=== PATIENT | male | born 1975 | race Caucasian/White ===

== ENCOUNTER 2020-08-20 10:08 | Emergency (ER) | payer MEDICAID, OTHER ==
[~2020-08-20] VITALS: Ht 157.5 cm; Wt 77.1 kg
--- NOTE | 2020-08-20 10:20 | NUR ---
PT IS IN ROOM #2B. DR JEFFERSON EVALUATED THE PT.
[2020-08-20] MEDS ORDERED: SULFAMETH/TRIMETH 800/160 MG TABLET ONE (10:48)
[2020-08-20] MEDS: SULFAMETH/TRIMETH 800/160 MG TABLET PO ONE (11:01)
--- NOTE | 2020-08-20 11:02 | NUR ---
PT WAS D/C'd TO HOME. D/C INSTRUCTIONS GIVEN TO THE PT BY DR JEFFERSON.
[2020-08-20 11:03] VITALS: BP 141/77
== END 2020-08-20 11:07 | disposition home or self-care (01) ==
LOC: ER 10:08
DX: L02.412 Cutaneous abscess of left axilla (principal)
CPT/HCPCS: A4663

== ENCOUNTER 2022-03-05 19:10 | Emergency (ER) | payer OTHER ==
[~2022-03-05] VITALS: Ht 188 cm; Wt 79.4 kg
--- NOTE | 2022-03-05 19:18 | NUR ---
Dr Clemente at bedside, MSE in progress.
[2022-03-05] MEDS ORDERED: LIDOCAINE 2%-EPI 1:100,000 20 ML VIAL ONE (19:28)
[2022-03-05] MEDS ORDERED: LIDOCAINE 2%-EPI 1:100,000 20 ML VIAL IJ ONE (19:30)
[2022-03-05] MEDS ORDERED: SULF1TAB48 PO (20:04)
[2022-03-05] MEDS ORDERED: ALBU18HF2 INH (20:05)
--- NOTE | 2022-03-05 20:17 | NUR ---
Patient given written and verbal discharge instructions. Patient verbalizes understanding of instructions. Patient is ambulatory with steady gait. Refuses offer of half-way placement. Patient given list of available shelters in surrounding area. pt ambulated with steady gait. denies pain. no SOB. no Chest pain. AOx4
[2022-03-05 20:19] VITALS: BP 139/82
== END 2022-03-05 20:20 | disposition home or self-care (01) ==
LOC: ER 19:11
DX: L02.411 Cutaneous abscess of right axilla (principal); F17.210 Nicotine dependence, cigarettes, uncomplicated; Z59.00 Homelessness unspecified; J45.909 Unspecified asthma, uncomplicated
CPT/HCPCS: 87070; A4663